=== PATIENT | male | born 1950 | race Caucasian/White ===

== ENCOUNTER → 2017-12-31 | Outpatient (CLI) | payer OTHER ==
[~2017-12-31] MED LIST: ASPI-516 CHEW; ASPI81TA82 PO; CLOP75 PO; FOSI20TA PO; METO-488 PO; METO1TAB42 PO; METO25CR PO
--- NOTE | 2018-01-04 11:10 | RSPPFT ---
DATE OF PROCEDURE: 12/31/17 COMMENTS: Spirometry with FVC of 3.4, FEV1 of 2.6, FEV1/FVC ratio at 77%. A non-significant response to acutely inhaled bronchodilator noted. Slow vital capacity is 99% of predicted. TLC is 88%. Diffusion capacity is normal. IMPRESSION: 1. No evidence of airways obstruction or restriction. 2. Normal diffusion capacity. 3. Non-significant response to acutely inhaled bronchodilator.
== END ==
LOC: HRSP 09:22
PROVIDERS: ATTEND Internal Medicine Sleep Medicine
DX: R06.89 Other abnormalities of breathing (principal)
CPT/HCPCS: 94060; 94726; 94729

== ENCOUNTER 2018-01-01 19:39 | Observation (INO) | payer MEDICARE, OTHER ==
[~2018-01-01] VITALS: Ht 170.2 cm; Wt 93.0 kg
[2018-01-01] VITALS (7 sets, daily range): BP systolic 126–141; BP diastolic 66–87; PULSE 55–147; RESP 16–20; TEMP 98–98.9; O2SAT 95–97
[~2018-01-01 19:39] MED LIST changes: -ASPI-516 CHEW; -METO-488 PO; -METO1TAB42 PO
[2018-01-01] MEDS ORDERED: METO-488 PO (20:18)
[2018-01-01] MEDS ORDERED: METO1TAB42 PO ×2 (20:28)
[2018-01-01] MEDS ORDERED: FOSI20TA PO ×2 (20:28)
[2018-01-01] MEDS ORDERED: ASPI-516 CHEW ×2 (20:28)
[2018-01-01] MEDS ORDERED: DILTIAZEM HCL 25 MG/5 ML VIAL IV ONE (20:30)
[2018-01-01] MEDS ORDERED: SODIUM CHLORIDE 0.9% FLUSH 10 ML FLUSH IV FLUSH PRN ×2 (20:30→22:15)
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
[2018-01-01 21:12] LABS: AUTOMATED NEUTROPHIL # 4.1 TH/MM3 (1.8-7.7); BASOPHIL # 0.1 TH/MM3 (0-0.2); BASOPHIL % 0.9 % (0.0-2.0); EOSINOPHIL # 0.1 TH/MM3 (0-0.4); HEMATOCRIT 47.9 % (39.0-51.0); HEMOGLOBIN 16.5 GM/DL (13.0-17.0); LYMPH % 22.7 % (9.0-44.0); LYMPHOCYTE # 1.6 TH/MM3 (1.0-4.8); MEAN CELL VOLUME 88.3 FL (80.0-100.0); MEAN CORPUSCULAR HEMOGLOBIN 30.5 PG (27.0-34.0); MEAN CORPUSCULAR HGB CONC 34.6 % (32.0-36.0); MEAN PLATELET VOLUME 9.1 FL (7.0-11.0); MONO % 16.8 % (0.0-8.0); MONOCYTE # 1.2 TH/MM3 (0-0.9); NEUT % 58.6 % (16.0-70.0); PLATELET COUNT 182 TH/MM3 (150-450); RED BLOOD COUNT 5.42 MIL/MM3 (4.50-5.90); RED CELL DISTRIBUTION WIDTH 13.9 % (11.6-17.2)
[2018-01-01 21:20] LABS: PROTHROMBIN TIME - PATIENT 10.4 SEC (9.8-11.6)
[2018-01-01 21:32] LABS: ALT (GPT) 40 U/L (12-78)
[2018-01-01 21:36] LABS: ALBUMIN 3.9 GM/DL (3.4-5.0); ALKALINE PHOSPHATASE 61 U/L (45-117); AST (GOT) 39 U/L (15-37); BICARBONATE 25.9 MEQ/L (21.0-32.0); BLOOD UREA NITROGEN 13 MG/DL (7-18); CALCIUM 8.6 MG/DL (8.5-10.1); CHLORIDE 109 MEQ/L (98-107); CREATININE 1.36 MG/DL (0.60-1.30); GLOMERULAR FILTRATION RATE 52 ML/MIN (>89); GLUCOSE,RANDOM 107 MG/DL (74-106); MAGNESIUM 2.3 MG/DL (1.5-2.5); SODIUM (NA) 143 MEQ/L (136-145); TOTAL BILIRUBIN ADULT 0.7 MG/DL (0.2-1.0); TOTAL PROTEIN 7.7 GM/DL (6.4-8.2); TROPONIN I LESS THAN 0.02 NG/ML (0.02-0.05)
--- NOTE | 2018-01-01 22:03 | RADRPT ---
EXAM DATE/TIME: 01/01/2018 21:16 [place] COMPARISON: No previous studies available for comparison. INDICATIONS : Elevated heart rate and shortness of breath for one day. MEDICAL HISTORY : Hypertension. SURGICAL HISTORY : Cardiac stents. ENCOUNTER: Initial ACUITY: 1 day PAIN SCORE: 0/10 LOCATION: Bilateral chest FINDINGS: A single view of the chest demonstrates the lungs to be symmetrically aerated without evidence of mas s, infiltrate or effusion. The cardiomediastinal contours are unremarkable except tortuous aorta. O sseous structures are intact. CONCLUSION: 1. No acute findings. Tortuous aorta. Jax Arguelles MD on January 01, 2018 at 22:01 Board Certified Radiologist. This report was verified electronically.
[2018-01-01] MEDS ORDERED: MORPHINE SULFATE 4 MG/ML INJ IV PUSH PRN (22:15)
[2018-01-01] MEDS ORDERED: ASPIRIN 81 MG CHEW TAB CHEW ONE (22:15)
[2018-01-01] MEDS ORDERED: ACETAMINOPHEN 500 MG CPLT PO PRN (22:15)
[2018-01-01] MEDS ORDERED: ONDANSETRON HCL 4 MG/2 ML VIAL IV PUSH PRN (22:15)
[2018-01-01] MEDS ORDERED: TEMAZEPAM 15 MG CAP PO PRN (22:15)
[2018-01-01] MEDS ORDERED: NITROGLYCERIN 0.4 MG SL 25 TABS/BTL SL PRN (22:15)
[2018-01-01] MEDS ORDERED: ACETAMINOPHEN/HYDROcodone 325 MG/7.5 MG TAB PO PRN (22:15)
[2018-01-01 23:45] LABS: TROPONIN I LESS THAN 0.02 NG/ML (0.02-0.05)
[2018-01-02 03:48] VITALS: BP 108/56; PULSE 57; RESP 18; TEMP 97.8; O2SAT 95
[2018-01-02 03:58] LABS: TROPONIN I LESS THAN 0.02 NG/ML (0.02-0.05)
[2018-01-02 08:50] VITALS: BP 119/66; PULSE 58; RESP 18; TEMP 96.8; O2SAT 95
[2018-01-02] MEDS ORDERED: METOPROLOL SUCCINATE 25 MG EXTENDED RELEASE TAB PO SCH (10:00)
[2018-01-02] MEDS ORDERED: LISINOPRIL 10 MG TAB PO SCH (10:00)
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
--- NOTE | 2018-01-02 10:52 | HHI.DCPOC ---
Discharge Care Plan Goals to Promote Your Health WITH YOUR HISTORY OF ATRIAL FIBRILLATION, YOU SHOULD DISCUSS ANTICOAGULATION MEDICATIONS WITH YOUR SALES AND MARKETING ASSOCIATE. WITH HISTORY OF HEART DISEASE, YOU SHOULD BE ON CHOLESTEROL MANAGEMENT MEDICATION, DISCUSS THIS WITH YOUR PHYSICIAN. * To prevent worsening of your condition and complications * To maintain your health at the optimal level Directions to Meet Your Goals Take your medications as prescribed Follow your dietary instruction Follow activity as directed Keep your appointments as scheduled Take your immunizations and boosters as scheduled If your symptoms worsen call your PCP, if no PCP go to Urgent Care Center or Emergency Room Smoking is Dangerous to Your Health. Avoid second hand smoke Call the 24-hour hour crisis hotline for domestic abuse at Gildardo Mejia Jan 02, 2018 10:52
[2018-01-02] MEDS ORDERED: ASPIRIN 325 MG TAB PO ONE (11:00)
[2018-01-02 11:13] VITALS: PULSE 55
--- NOTE | 2018-01-02 11:20 | EKG ---
Date Performed: 01/01/2018 Time Performed: 23:13:44 PTAGE: 67 years EKG: SINUS BRADYCARDIA WITH MARKED SINUS ARRHYTHMIA WITH FIRST DEGREE AV BLOCK MINIMAL VOLTAGE C RITERIA FOR LVH, CONSIDER NORMAL VARIANT ABNORMAL ECG PREVIOUS TRACING : 01/01/2018 20.45 Compared to previous tracingatrial flutter has converted to Sinus rhythm . DOCTOR: Peyman Moss Interpretating Date/Time 01/02/2018 11:18:28
--- NOTE | 2018-01-02 11:21 | EKG ---
Date Performed: 01/01/2018 Time Performed: 20:45:22 PTAGE: 67 years EKG: ATRIAL FLUTTER/TACHYCARDIA INFERIOR MYOCARDIAL INFARCTION ABNORMAL ECG PREVIOUS TRACING : 01/01/2018 20.44 Since previous tracing, no significant change noted DOCTOR: Peyman Moss Interpretating Date/Time 01/02/2018 11:19:25
--- NOTE | 2018-01-02 11:23 | EKG ---
Date Performed: 01/01/2018 Time Performed: 20:16:40 PTAGE: 67 years EKG: ATRIAL FLUTTER/TACHYCARDIA WITH RAPID VENTRICULAR RESPONSE MINIMAL VOLTAGE CRITERIA FOR LVH , CONSIDER NORMAL VARIANT INFERIOR MYOCARDIAL INFARCTION ABNORMAL ECG PREVIOUS TRACING : 05/29/1999 01.03 Compared to previous tracing,rhythm change from sinus to at rial flutter with With rapid ventricular response , DOCTOR: Peyman Moss Interpretating Date/Time 01/02/2018 11:22:28
== END 2018-01-02 11:39 | disposition home or self-care (01) ==
LOC: NEPE 19:39 → NEDA 22:16 → NEPFCDU 22:51
PROVIDERS: ADMIT Internal Medicine Interventional Cardiology; ATTEND Internal Medicine Interventional Cardiology
DX: I48.0 Paroxysmal atrial fibrillation (principal); I48.92 Unspecified atrial flutter; R42 Dizziness and giddiness; R60.0 Localized edema; R00.0 Tachycardia, unspecified; I25.10 Atherosclerotic heart disease of native coronary artery without angina pectoris; I10 Essential (primary) hypertension; I25.2 Old myocardial infarction; I44.0 Atrioventricular block, first degree; R00.1 Bradycardia, unspecified; R94.31 Abnormal electrocardiogram [ECG] [EKG]; F41.9 Anxiety disorder, unspecified; H91.92 Unspecified hearing loss, left ear; Z79.82 Long term (current) use of aspirin; Z95.5 Presence of coronary angioplasty implant and graft; Z87.891 Personal history of nicotine dependence; Z79.899 Other long term (current) drug therapy
CPT/HCPCS: 71045; 80053; 82550; 82552; 83735; 83880; 84484; 85025; 85610; 85730; 93005; 96374; 99285; G0378